=== PATIENT | male | born 1980 | race Caucasian/White ===

== ENCOUNTER → 2021-04-30 | Outpatient (CLI) | payer OTHER ==
--- NOTE | 2021-04-30 13:11 | RAD ---
3 views facial bones HISTORY: Pain and bruising and swelling over left orbit after elbow dated in the face Mcgowan' view and AP view and lateral views were obtained of the face There is soft tissue swelling on the left. The visualized osseous structures appear grossly intact. IMPRESSION: No acute bony abnormality identified. Electronically signed by: Ricardo Berry III, MD (04/30/2021 1:09 PM) [facility]
== END ==
LOC: RAD 12:51
PROVIDERS: ATTEND Nurse Practitioner
DX: S09.92XA Unspecified injury of nose, initial encounter (principal); M79.89 Other specified soft tissue disorders; X58.XXXA Exposure to other specified factors, initial encounter; Y93.89 Activity, other specified; Y92.89 Other specified places as the place of occurrence of the external cause; Y99.8 Other external cause status
CPT/HCPCS: 70150